=== PATIENT | female | born 1945 | race Caucasian/White ===

== ENCOUNTER 2021-02-23 13:34 | Emergency (ER) | payer MEDICARE ==
[~2021-02-23] VITALS: Ht 160 cm; Wt 63.2 kg
[2021-02-23] MEDS ORDERED: KETOROLAC 30 MG/1 ML IM ONE (14:00)
--- NOTE | 2021-02-23 14:02 | NUR ---
PT TO ROOM 16 W/ C/O MID BACK PAIN RADIATING TO BILAT LEGS. PER PT PLAYED Scooters FRIDAY AND STARTED HAVING BACK PAIN 2 DAYS LATER. PT RESTING ON GURNEY. NADN. MONITORS APPLIED. BP ELEVATED. KEVIN YUN AT BEDSIDE FOR ABEL DE LEON DC OF PT BP AT THIS TIME. 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
[2021-02-23] MEDS ORDERED: KETOROLAC 30 MG/1 ML ONE (14:12)
--- NOTE | 2021-02-23 14:36 | NUR ---
PT CHART REVIEWED AND PLACED FOR RECHECK.
--- NOTE | 2021-02-23 14:50 | NUR ---
PT RESTING ON GURNEY. NADN. JONAS.
--- NOTE | 2021-02-23 14:57 | NUR ---
PT STATES SHE JUST REMEMBERED SHE HAS DISTENDED ABDOMEN STARTED 3 WEEKS AGO. KEVIN YUN AT BEDSIDE FOR RE-EVAL.
[2021-02-23] MEDS ORDERED: MORPHINE SULFATE 4 MG/ML, 1ML IVPush PRN (15:30)
[2021-02-23] MEDS ORDERED: ONDANSETRON 2MG/ML, 2ML IVPush ONE (15:30)
[2021-02-23] MEDS ORDERED: SODIUM CHLORIDE FLUSH 10ML SYR IVF ONE (15:30)
[2021-02-23] MEDS ORDERED: ONDANSETRON 2MG/ML, 2ML ONE (15:40)
[2021-02-23] MEDS ORDERED: MORPHINE SULFATE 4 MG/ML, 1ML ONE (15:40)
[2021-02-23 15:51] LABS: BASOPHILS % (AUTO) 1 % (0-1); EOSINOPHILS % (AUTO) 1 % (1-7); LYMPHOCYTES % (AUTO) 29 % (22-44); MEAN CORPUSCULAR HEMOGLOBIN 33.2 pg (27.0-34.8); MEAN CORPUSCULAR HGB CONC 33.8 g/dL (32.4-35.8); MEAN PLATELET VOLUME 7.7 fL (7.4-10.4); MONOCYTES % (AUTO) 8 % (2-9); NEUTROPHILS % (AUTO) 61 % (42-75); PLATELET COUNT 281 x10^3/uL (130-400); RED BLOOD COUNT 3.93 x10^6/uL (3.82-5.3); RED CELL DISTRIBUTION WIDTH 12.7 % (9.6-15.2)
[2021-02-23 15:53] VITALS: BP 178/45
--- NOTE | 2021-02-23 15:53 | NUR ---
PT RESTING ON GURNEY. DIGGS S. PIV INITIATED AND MEDICATED PER JAN.
[2021-02-23 15:59] LABS: ANION GAP 6 mmol/L (5-15); CALCIUM 9.6 mg/dL (8.5-10.1); CHLORIDE 110 mmol/L (98-107)
[2021-02-23 16:05] LABS: ALANINE AMINOTRANSFERASE 26 U/L (12-78); ALKALINE PHOSPHATASE 88 U/L (45-117); BILIRUBIN,TOTAL 0.6 mg/dL (0.2-1.0); CREATININE 0.69 mg/dL (0.55-1.02); TOTAL PROTEIN 7.3 g/dL (6.4-8.2)
--- NOTE | 2021-02-23 16:08 | NUR ---
PT CHART REVIEWED AND PLACED FOR RECHECK.
== END 2021-02-23 16:47 | disposition home or self-care (01) ==
LOC: ED 13:52
DX: S22.070A Wedge compression fracture of T9-T10 vertebra, initial encounter for closed fracture (principal); S29.012A Strain of muscle and tendon of back wall of thorax, initial encounter; M51.34 Other intervertebral disc degeneration, thoracic region; R10.84 Generalized abdominal pain; X58.XXXA Exposure to other specified factors, initial encounter; Y93.89 Activity, other specified; Y92.89 Other specified places as the place of occurrence of the external cause; Y99.8 Other external cause status
CPT/HCPCS: 36415; 72072; 80053; 83690; 83880; 85025; 93005; 96372; 96374; 96375; 99285; J1885; J2270; J2405